=== PATIENT | female | born 1990 | race Caucasian/White ===

== ENCOUNTER 2019-06-13 18:42 | Inpatient (IN) | payer MEDICAID ==
[~2019-06-13] VITALS: Ht 162.6 cm; Wt 77.3 kg
--- NOTE | 2019-06-13 19:08 | NUR ---
Marisela SKELTON evaluating pt at this time.
[2019-06-13 19:11] VITALS: BP_SYST 138
[2019-06-13] MEDS ORDERED: NACL 0.9% 1,000 ML IV ONE (19:15)
[2019-06-13] MEDS ORDERED: DIPHENHYDRAMINE INJ 50 MG/ML VIAL IVP ONE (19:15)
[2019-06-13] MEDS ORDERED: MORPHINE 4 MG/ML INJ. SYRINGE IVP ONE (19:15)
--- NOTE | 2019-06-13 19:16 | NUR ---
Patient triaged and placed in waiting room. VSS and patient appears in no acute distress at this time. Accompanied by self, awaiting available bed, MSE completed by SALES SERVICE REP
[2019-06-13 19:39] LABS: BASOPHILS % (AUTO) 0.5 % (0.0-2.0); EOSINOPHILS # (AUTO) 0.3 K/uL (0.0-0.4); EOSINOPHILS % (AUTO) 4.6 % (0.0-4.0); HEMATOCRIT 41.4 % (36-48); LYMPHOCYTES # (AUTO) 1.8 K/uL (1.0-5.5); LYMPHOCYTES % (AUTO) 24.7 % (20.5-51.5); MEAN CORPUSCULAR HEMOGLOBIN 31 pg (27-31); MEAN CORPUSCULAR HGB CONC 34 % (32-36); MEAN CORPUSCULAR VOLUME 90 fL (79.0-98.0); MONOCYTES # (AUTO) 0.4 K/uL (0.0-1.0); MONOCYTES % (AUTO) 5.8 % (1.7-9.3); NEUTROPHILS # (AUTO) 4.8 K/uL (1.8-7.7); NEUTROPHILS % (AUTO) 64.4 % (40.0-70.0); PLATELET COUNT (AUTO) 209 K/uL (130-430); RED BLOOD CELL COUNT(AUTO) 4.59 MIL/uL (4.2-6.2); RED CELL DISTRIBUTION WIDTH 13.1 % (9.0-15.0); WHITE BLOOD COUNT (AUTO) 7.5 K/uL (4.8-10.8)
--- NOTE | 2019-06-13 19:45 | NUR ---
Patient to ER bed 7 to gown for evaluation. Side rails up. Resumed care.
[2019-06-13 19:56] LABS: CALCIUM 8.6 mg/dL (8.4-11.0); CREATININE 0.74 mg/dL (0.55-1.30); POTASSIUM 3.8 mmol/L (3.5-5.1)
--- NOTE | 2019-06-13 20:00 | NUR ---
Patient came to the ER due to abd pain. Patient describes it as 6/10 upper right abd that radiates towards the back. The patient was leaving work before coming to the ER. Patient not presenting any signs of acute distress.
[2019-06-13 20:05] LABS: ALBUMIN 3.9 g/dL (3.4-4.8); TOTAL BILIRUBIN 0.3 mg/dL (0.0-1.0)
--- NOTE | 2019-06-13 20:45 | NUR ---
Patient transported to radiology via gurney, accompanied by rad staff.
[2019-06-13 21:24] LABS: BILIRUBIN,URINE NEGATIVE (NEGATIVE); BLOOD, URINE NEGATIVE (NEGATIVE); COLOR,URINE YELLOW (YELLOW); GLUCOSE,URINE NEGATIVE (NEGATIVE); KETONES,URINE NEGATIVE (NEGATIVE); LEUKOCYTE ESTERASE ,URINE 2+ (NEGATIVE); NITRITE, URINE NEGATIVE (NEGATIVE); PROTEIN URINE NEGATIVE (NEGATIVE); UROBILINOGEN,URINE 0.2 (0.2-1.0)
[2019-06-13 21:28] LABS: CLARITY/URINE HAZY (CLEAR)
[2019-06-13 21:38] LABS: BACTERIA,URINE FEW /HPF (None Seen); MUCUS,URINE None Seen /LPF (None Seen); RBC,URINE NONE SEEN /HPF (0-3); YEAST,URINE Few /HPF (None Seen)
[2019-06-13] MEDS ORDERED: PIPERACILLIN/TAZO 3.375 GM in NS 50 ML IV ONE (21:45)
[2019-06-13] MEDS ORDERED: PIPERACILLIN/TAZOBACTAM 3.375 GM/VIAL (ZOSYN) IV ONE (21:58)
--- NOTE | 2019-06-13 23:22 | NUR ---
Patient advised that she is not receiving any prescribed medication.
--- NOTE | 2019-06-13 23:47 | NUR ---
Patient will be admitted to care of Laure RN. Admitted to med surg unit. Will go to room 126 B. Belongings list completed. Complete and up to date summary report printed. SBAR report to be given at bedside with opportunity for questions.
--- NOTE | 2019-06-13 23:49 | NUR ---
ADMISSION: The patient, NANCY SIMMS, 28 y/o, F admitted by , was given written information regarding hospital policies, unit procedures and contact persons. Valuables were checked and pt oriented to her room and surrounding.
[2019-06-13 23:55] VITALS: BP_SYST 105
[2019-06-14] MEDS ORDERED: ONDANSETRON HCL 4 MG/2 ML VIAL IVP PRN (00:15)
[2019-06-14] MEDS ORDERED: MORPHINE 2 MG/ML INJ. SYRINGE IVP PRN (00:15)
[2019-06-14] MEDS ORDERED: ACETAMINOPHEN 325 MG TABLET PO PRN (00:15)
[2019-06-14] MEDS ORDERED: ALBUTEROL SULFATE 0.083% 2.5 MG/3 ML VIAL.NEB INH PRN (00:15)
[2019-06-14] MEDS ORDERED: MORPHINE 4 MG/ML INJ. SYRINGE IVP PRN (00:15)
[2019-06-14] MEDS ORDERED: PIPERACILLIN/TAZO 3.375/DEX-IS 50 ML IV SCH (00:15)
[2019-06-14] MEDS: NACL 0.9% 1,000 ML IV SCH ×3 (00:39→11:29)
--- NOTE | 2019-06-14 00:39 | NUR ---
IVF of NS started in LAC at 125ml/hr. IV site is without any signs of infiltration. Pt was instructed on nothing by mouth except water with medications/ice chips and pt verbalized understanding. Fall and safety precautions are in place.
[2019-06-14 01:50] VITALS: BP_SYST 138
--- NOTE | 2019-06-14 02:00 | NUR ---
Pt is resting quietly in bed. IVF is infusing well in [facility]. Call light is with pt and bed is in the lowest and locked positions.
--- NOTE | 2019-06-14 04:41 | NUR ---
CONSULT: CONSULT CALLED FOR DR. BLAKE I SPOKE WITH JUAN JOSÉ PULIDO
--- NOTE | 2019-06-14 04:50 | NUR ---
Dr. Small called and new orders received.
--- NOTE | 2019-06-14 05:13 | NUR ---
Pt is awake and not in any distress. IVF is infusing well in LAC. Fall and safety precautions are in place.
[2019-06-14] MEDS ORDERED: FLU VACC QS2019-20 36MOS UP/PF 60 MCG/0.5 ML SYRINGE I.M. PRN (06:00)
[2019-06-14] MEDS: PIPERACILLIN/TAZO 3.375/DEX-IS 50 ML IV SCH ×3 (06:20→17:23)
[2019-06-14 06:21] LABS: INR 1.1 (0.8-1.2); PROTHROMBIN TIME 10.7 SECS (9.5-12.5)
[2019-06-14 06:22] LABS: ALBUMIN 3.1 g/dL (3.4-4.8); CALCIUM 8.1 mg/dL (8.4-11.0); CREATININE 0.84 mg/dL (0.55-1.30); POTASSIUM 3.9 mmol/L (3.5-5.1); TOTAL BILIRUBIN 0.3 mg/dL (0.0-1.0)
[2019-06-14] MEDS ORDERED: PIPERACILLIN/TAZOBACTAM 3.375 GM/VIAL (ZOSYN) IV ONE (06:27)
--- NOTE | 2019-06-14 06:30 | NUR ---
All pt's needs were attended to. Pt is resting quietly in bed. IVF is infusing well in LAC without any signs of infiltration. Fall and safety precautions are in place. Will endorse to day shift nurse.
[2019-06-14 06:31] LABS: BASOPHILS % (AUTO) 0.5 % (0.0-2.0); EOSINOPHILS # (AUTO) 0.4 K/uL (0.0-0.4); EOSINOPHILS % (AUTO) 6.5 % (0.0-4.0); HEMATOCRIT 36.5 % (36-48); HEMOGLOBIN 12.3 g/dL (12.0-16.0); LYMPHOCYTES # (AUTO) 1.8 K/uL (1.0-5.5); LYMPHOCYTES % (AUTO) 28.8 % (20.5-51.5); MEAN CORPUSCULAR HEMOGLOBIN 31 pg (27-31); MEAN CORPUSCULAR HGB CONC 34 % (32-36); MEAN CORPUSCULAR VOLUME 90 fL (79.0-98.0); MONOCYTES # (AUTO) 0.5 K/uL (0.0-1.0); NEUTROPHILS # (AUTO) 3.4 K/uL (1.8-7.7); NEUTROPHILS % (AUTO) 55.2 % (40.0-70.0); PLATELET COUNT (AUTO) 185 K/uL (130-430); RED BLOOD CELL COUNT(AUTO) 4.04 MIL/uL (4.2-6.2); RED CELL DISTRIBUTION WIDTH 12.8 % (9.0-15.0); WHITE BLOOD COUNT (AUTO) 6.1 K/uL (4.8-10.8)
--- NOTE | 2019-06-14 08:00 | NUR ---
Initial notes- In bed, awake. ambulate with steady gait. IVF infusing well. Pain is controlled at this time. keep npo. aware of hida scan and cant take pain medications. call light in reach. will monitor.
[2019-06-14 08:03] VITALS: BP_SYST 114
--- NOTE | 2019-06-14 11:33 | NUR ---
Notes- In bed, watching tv, pain is controlled. waiting fo the hida scan. administer antibiotics.
--- NOTE | 2019-06-14 12:10 | NUR ---
Pt went to hida scan at this time.
--- NOTE | 2019-06-14 14:00 | NUR ---
Note- Pt arrived from hida scan.
[2019-06-14 16:01] VITALS: BP_SYST 122
--- NOTE | 2019-06-14 16:09 | NUR ---
RESULTS- no reports of the results on the hida scan. will monitor.
--- NOTE | 2019-06-14 17:25 | NUR ---
CONSULTATION PAGED/CALLED Reason for Consultation: [] GI BLEED Person Who was Notified: [] STEVEN Consulting Physician: [] DR ESCALERA, CIRCUS ARTIST FOR DR LUGO Abrasives Sales Representative Specialty: [] GI Ordering Physician: [] DR GRIFFIN Addendum: 06/14/19 at 1727 by Melyssa Hernandez [place]/ WRONG PT
--- NOTE | 2019-06-14 18:25 | NUR ---
Notes- called nuclear med re; preliminary results of hida scan, line is busy at this time. Pt in bed, watching tv. Denies any abdominal pain at this time. orange juice of 250ml given and ice chips. still waiting for hida scan results. will endorse
--- NOTE | 2019-06-14 19:18 | NUR ---
OPENING NOTE RECEIVED CARE OF PT AND SBAR REPORT. PT IS AAOX4, SITTING UP IN BED, VISITOR IS AT BEDSIDE. PT EATING A SANDWICH, DENIES NAUSEA AT THIS TIME. IVF ARE INFUSING AT ORDERED RATE, NO S/S OF INFILTRATION AT IV SITE. POC DISCUSSED WITH PT, PT VERBALIZED UNDERSTANDING. PT REPORTING TOLERABLE PAIN TO RIGHT SIDE OF ABDOMEN. NO S/S OF ACUTE DISTRESS. PT INSTRUCTED TO USE CALL LIGHT FOR ASSISTANCE. SAFETY PRECAUTIONS ARE IN PLACE: BED IS LOCKED IN LOWEST POSITION, SIDE RAILS UP X2, CALL LIGHT IS WITH PT, PERSONAL ITEMS WITHIN REACH. WILL CONTINUE TO MONITOR.
[2019-06-14 21:13] VITALS: BP_SYST 120
--- NOTE | 2019-06-14 21:20 | NUR ---
SPOKE TO DR. HAYDEN PARRA STATED PT WAS CLEARED FOR DISCHARGE AND FOR PT TO FOLLOW UP WITH PCP WITHIN ONE WEEK.
--- NOTE | 2019-06-14 21:22 | NUR ---
SPOKE TO DR. CONWAY DISCHARGE ORDER RECEIVED.
--- NOTE | 2019-06-14 21:55 | NUR ---
Pt was discharged home via wheelchair in stable condition with all her belongings and Medication Side Effects Fact Sheet. Prior to discharge, Transition of Care/Discharge Instructions were explained and given to pt who verbalized understanding. Pt was instructed to follow up with her primary care physician within [address] Odom's order. Pt also verbalized understanding. Wrist ID band was removed and placed in the shredder. Angiocath in LAC was removed intact and pressure dressing with 2x2 gauze was applied to the IV site.
== END 2019-06-14 21:55 | disposition home or self-care (01) ==
LOC: SED 18:42 → SMU 23:26
PROVIDERS: ADMIT Internal Medicine Hospice and Palliative Medicine; ATTEND Internal Medicine Hospice and Palliative Medicine
DX: K81.9 Cholecystitis, unspecified (principal); M34.1 CR(E)ST syndrome; K86.89 Other specified diseases of pancreas; K27.9 Peptic ulcer, site unspecified, unspecified as acute or chronic, without hemorrhage or perforation; Z83.79 Family history of other diseases of the digestive system
CPT/HCPCS: 36415; 76700-TC; 78226; 80053; 81000-TC; 81002; 81025; 83605; 83690-TC; 85025; 85610-TC; 87040-TC; 87086; 96361; 96365; 96375; 99285; A9537; J1200; J2270; J2543; J7030; J7060

== ENCOUNTER 2021-09-07 16:14 | Emergency (ER) | payer MEDICAID ==
[~2021-09-07] VITALS: Ht 162.6 cm; Wt 77.1 kg
[2021-09-07 17:42] LABS: BILIRUBIN,URINE NEGATIVE (NEGATIVE); BLOOD, URINE NEGATIVE (NEGATIVE); CLARITY/URINE CLEAR (CLEAR); GLUCOSE,URINE NEGATIVE (NEGATIVE); KETONES,URINE NEGATIVE (NEGATIVE); LEUKOCYTE ESTERASE ,URINE NEGATIVE (NEGATIVE); NITRITE, URINE NEGATIVE (NEGATIVE); PROTEIN URINE NEGATIVE (NEGATIVE); UROBILINOGEN,URINE 0.2 (0.2-1.0)
[2021-09-07 17:43] LABS: COLOR,URINE STRAW (YELLOW)
[2021-09-07 18:12] LABS: BASOPHILS % (AUTO) 0.3 % (0.0-2.0); EOSINOPHILS # (AUTO) 0.4 K/uL (0.0-0.4); HEMATOCRIT 38.7 % (36-48); HEMOGLOBIN 13.1 g/dL (12.0-16.0); LYMPHOCYTES # (AUTO) 1.9 K/uL (1.0-5.5); MEAN CORPUSCULAR HEMOGLOBIN 30 pg (27-31); MEAN CORPUSCULAR HGB CONC 34 % (32-36); MEAN CORPUSCULAR VOLUME 88 fL (79.0-98.0); MONOCYTES # (AUTO) 0.7 K/uL (0.0-1.0); MONOCYTES % (AUTO) 6.9 % (1.7-9.3); NEUTROPHILS # (AUTO) 7.4 K/uL (1.8-7.7); NEUTROPHILS % (AUTO) 70.8 % (40.0-70.0); PLATELET COUNT (AUTO) 187 K/uL (130-430); RED BLOOD CELL COUNT(AUTO) 4.39 MIL/uL (4.2-6.2); RED CELL DISTRIBUTION WIDTH 14.1 % (9.0-15.0); WHITE BLOOD COUNT (AUTO) 10.4 K/uL (4.8-10.8)
[2021-09-07 18:18] LABS: ANION GAP 11 (5-15); CALCIUM 9.7 mg/dL (8.4-11.0); CHLORIDE 101 mmol/L (98-107); GLUCOSE 84 mg/dL (70-99); POTASSIUM 3.5 mmol/L (3.5-5.1); SODIUM SERUM 135 mmol/L (136-145); UREA NITROGEN, BLOOD 10 mg/dL (8-21)
[2021-09-07 18:21] LABS: GFR AFRICAN AMERICAN 186 mL/min (>90)
[2021-09-07 18:46] LABS: ALANINE AMINOTRANSFERASE 23 U/L (12-78); ALBUMIN 3.5 g/dL (3.4-4.8); ASPARTATE AMINOTRANSFERASE 23 U/L (10-37); LIPASE 112 U/L (73-393)
[2021-09-07 18:47] LABS: HCG,QUANTITATIVE 52345 mIU/ML (0-6); TOTAL BILIRUBIN < 0.1 mg/dL (0.0-1.0)
[2021-09-07] MEDS ORDERED: ACET-2634 PO (20:11)
[2021-09-07 20:32] VITALS: BP_SYST 125
== END 2021-09-07 20:32 | disposition home or self-care (01) ==
LOC: SED 16:14
DX: O44.01 Complete placenta previa NOS or without hemorrhage, first trimester (principal); O26.891 Other specified pregnancy related conditions, first trimester; R10.2 Pelvic and perineal pain; Z3A.13 13 weeks gestation of pregnancy; Z79.899 Other long term (current) drug therapy
CPT/HCPCS: 36415; 76801; 76817; 80053; 81003; 83690; 84702; 85025; 86901; 99284

== ENCOUNTER 2023-08-02 14:44 | Emergency (ER) | payer MEDICAID ==
[~2023-08-02] VITALS: Ht 162.6 cm; Wt 72.6 kg
[~2023-08-02 14:44] MED LIST: ACET-2634 PO
[2023-08-02 14:57] VITALS: BP_SYST 127; PULSE 81; RESP 18; TEMP 97.8; O2SAT 97
[2023-08-02] MEDS: KETOROLAC TROMETHAMINE 15 MG VIAL IVP ONE (16:57)
[2023-08-02 17:16] LABS: BASOPHILS % (AUTO) 0.4 % (0.0-2.0); EOSINOPHILS # (AUTO) 0.3 K/uL (0.0-0.4); HEMATOCRIT 37.8 % (36-48); HEMOGLOBIN 12.7 g/dL (12.0-16.0); LYMPHOCYTES # (AUTO) 1.3 K/uL (1.0-5.5); LYMPHOCYTES % (AUTO) 10.3 % (20.5-51.5); MEAN CORPUSCULAR HEMOGLOBIN 28 pg (27-31); MEAN CORPUSCULAR HGB CONC 34 % (32-36); MEAN CORPUSCULAR VOLUME 82 fL (79.0-98.0); MONOCYTES # (AUTO) 0.6 K/uL (0.0-1.0); MONOCYTES % (AUTO) 4.7 % (1.7-9.3); NEUTROPHILS # (AUTO) 10.7 K/uL (1.8-7.7); NEUTROPHILS % (AUTO) 82.6 % (40.0-70.0); PLATELET COUNT (AUTO) 260 K/uL (130-430); RED CELL DISTRIBUTION WIDTH 13.5 % (9.0-15.0)
[2023-08-02 17:31] LABS: ERYTHROCYTE SEDIMENTATION RATE 49 MM/HR (0-20)
[2023-08-02 18:31] LABS: CALCIUM 8.9 mg/dL (8.4-11.0); CREATININE 0.56 mg/dL (0.55-1.30); POTASSIUM 3.9 mmol/L (3.5-5.1)
[2023-08-02] MEDS ORDERED: AMPICILLIN SODIUM/SULBACTAM NA 3 GM VIAL ONE (19:32)
[2023-08-02] MEDS: AMPICILLIN SODIUM/SULBACTAM NA 3 GM in NS 100 ML IV ONE (19:48)
[2023-08-02] MEDS: DEXAMETHASONE SOD PHOSPHATE 10 MG/ML VIAL IVP ONE (19:48)
[2023-08-02] MEDS ORDERED: AUG875 PO (21:18)
[2023-08-02 21:23] VITALS: BP_SYST 110; PULSE 58; RESP 20; TEMP 97.8; O2SAT 98
== END 2023-08-02 21:23 | disposition home or self-care (01) ==
LOC: SED 14:44
DX: I88.9 Nonspecific lymphadenitis, unspecified (principal); R22.0 Localized swelling, mass and lump, head; R22.1 Localized swelling, mass and lump, neck; Z79.899 Other long term (current) drug therapy
CPT/HCPCS: 99291; 96365; 70491; 96375; 96366; 80048; 85025; 85651; 87040; 36415; 81025; 83605; 82397; J0295; J1100; J1885; Q9967